=== PATIENT | female | born 1980 | race Caucasian/White ===

== ENCOUNTER 2016-09-19 21:42 | Emergency (ER) ==
[2016-09-19] MEDS ORDERED: DILAUDID IV ONE (23:32)
[2016-09-19] MEDS ORDERED: ZOFRAN IV ONE (23:32)
[2016-09-19] MEDS ORDERED: NS 1,000 ML IV ONE (23:32)
[2016-09-19 23:41] LABS: MANUAL DIFF NEEDED? NO
[2016-09-19 23:56] LABS: BASO% 0.2 % (0.0-0.8); EOS# 0.06 X1000 (0.0-0.7); EOS% 0.7 % (0.0-10.0); HEMATOCRIT 35.9 % (37.0-47.0); HEMOGLOBIN 11.3 g/dL (12.0-16.0); IMM GRAN# 0.01 X1000 (0.0-0.04); IMM GRAN% 0.1 % (0.0-0.5); LYMPH# 0.78 X1000 (1.2-3.4); LYMPH% 9.2 % (20.5-51.1); MCH 23.6 PG (27-31); MCHC 31.5 g/dL (33-37); MCV 75.1 FL (81-99); MONO# 0.53 X1000 (0.11-0.59); MONO% 6.2 % (1.7-9.3); MPV 10.3 FL (7.4-10.4); NEUT% 83.6 % (42.2-75.2); PLT 315 X1000 (130-400); RBC 4.78 XMIL (4.2-5.4)
[2016-09-20 00:04] LABS: AGAP 14; ALBUMIN 4.2 g/dL (3.5-5.0); ALKALINE PHOSPHATASE 45 U/L (32-104); AMYLASE 26 U/L (20-200); BUN 15 mg/dL (8-22); CALCIUM 8.8 mg/dL (8.8-10.2); CHLORIDE 101 mmol/L (98-107); COSMO 272; GOT 17 U/L (10-30); GPT 11 U/L (10-36); LIPASE 12 U/L (13-60); POTASSIUM 3.7 mmol/L (3.5-5.1); SODIUM 135 mmol/L (136-145); TCO2 20 mmol/L (25-35); TOTAL PROTEIN 7.1 g/dL (6.3-8.3)
[2016-09-20 00:19] LABS: URINE SOURCE CLEAN CATCH
[2016-09-20 00:23] LABS: BILIRUBIN URINE NEGATIVE (NEGATIVE); BLOOD URINE NEGATIVE (NEGATIVE); CLARITY CLEAR (CLEAR); COLOR YELLOW; GLUCOSE URINE NEGATIVE (NEGATIVE); LEUKOCYTES URINE 2+ (NEGATIVE); NITRITE URINE NEGATIVE (NEGATIVE); PH URINE 6.5; PROTEIN URINE TRACE mg/dL (NEGATIVE); UROBILINOGEN URINE 1+(1 mg/dL)
[2016-09-20 00:36] LABS: URINE CULTURE PL NEEDED? YES; URINE EPITHELIAL CELLS <10 /HPF (<10); URINE RBC <10 /HPF (<10)
--- NOTE | 2016-09-20 01:14 | PROVIDER DOCUMENTATION ---
HPI-Abdominal Pain/GI Problem - General Source: patient - History of Present Illness-ABD Nature of Presenting Problems: 35 year old WF presents with c/o nausea/vomiting greater than 50 times today, fever, max temp 101. onset all symptoms this AM, abd pain is sharp, dull, exacerbated with palpitation, movement. alleviated by nothing. Abdominal Pain Onset Location: reports: RUQ, RLQ Pain Radiation: reports: no radiation Quality of Pain: reports: dull, sharp Severity in ED: reports: mild, moderate Onset/Duration: reports: this morning Timing: reports: still present, constant, getting worse Activities at Onset: reports: none Exposure to sick contacts?: No Modifying Factors: improves with: massage, movement Associated Symptoms: reports: fatigue, fever/chills, loss of appetite, malaise. denies: constipation, diarrhea, nausea, rash, syncope, vomiting, weakness Last BM: this morning Dark Stools Present?: reports: none noticed. denies: maroon, black, tarry, bright red blood Rectal Bleeding: reports: none. denies: bleeding without stool, bright red blood on paper, blood mixed with stool, blood streaks on stool, bloody diarrhea Rectal Pain: reports: none. denies: known anal fissure(s), known hemorrhoids, fistula, abscess, r/t intercourse, r/t foreign body # of Vomiting Episodes: 50 Emesis Description: reports: clear. denies: red blood, coffee grounds, blood- streaked <Jailyn Tracy - Last Filed: 09/20/16 02:10> <Michael Ferro - Last Filed: 09/20/16 03:41> - General Chief Complaint: Nausea/Vomiting Stated Complaint: VOMITING/FEVER Time Seen by Provider: 09/19/16 22:59 Allergies/Adverse Reactions: Patient Allergies Allergy/AdvReac Type Severity Reaction Status Date / Time No Known Allergies Allergy Verified 09/19/16 22:48 Home Medications: Home Medication List Medication Instructions Recorded Confirmed Last Taken Type Chlordiazepoxide/Clidinium [Librax] 1 each PO TID PRN PRN #30 capsule 09/20/16 Unknown Rx Promethazine [Phenergan] 1 - 2 tab PO Q6H PRN PRN #18 tablet 09/20/16 Unknown Rx Review of Systems - Adult - REVIEW OF SYSTEMS - ADULT Constitutional: reports: see HPI, chills, fever, fatique Eyes: reports: no symptoms reported. denies: discharge, blurred vision, double vision, redness Ears, Nose, Mouth & Throat: reports: no symptoms reported. denies: ear discharge, ear pain, nose pain, loose teeth, throat pain, throat swelling Cardiovascular: reports: no symptoms reported. denies: chest pain, palpitations , syncope Respiratory: reports: no symptoms reported. denies: chronic cough, cough, shortness of breath, wheezing Gastrointestinal: reports: see HPI, abdominal pain, nausea, poor appetite, vomiting. denies: hematemesis, constipation, diarrhea, difficulty swallowing, frequent heartburn, rectal bleeding Genitourinary: reports: no symptoms reported. denies: dysuria, hematuria, urgency Musculoskeletal: reports: no symptoms reported. denies: bone pain, joint pain, joint swelling, neck pain Integumentary: reports: no symptoms reported. denies: hives, nail changes, skin thickening Neurological: reports: no symptoms reported. denies: ataxia, dizziness/vertigo , numbness, paresthesia, tremors Psychiatric: reports: no symptoms reported Endocrine: reports: no symptoms reported Hematologic/Lymphatic: reports: no symptoms reported Allergic/Immunologic: reports: no symptoms reported. denies: frequent infections All Other Systems: Reviewed and Negative <Jailyn Tracy - Last Filed: 09/20/16 02:10> Past History - Adult - PAST MEDICAL HISTORY-ADULT Review of Records: reports: Old Records Reviewed, Nursing Assessment Review, Medications Reviewed, Social history reviewed & non-contributory. Major Childhood Illnesses: reports: denies history Cardiovascular: reports: denies history Respiratory: reports: denies history Gastrointestinal: reports: denies history Obstetrical/Gynecological: reports: denies history Genitourinary: reports: denies history Musculoskeletal: reports: denies history Neurological: reports: denies history Endocrine/Immune: reports: denies history Other Conditions: reports: denies history - PRIOR SURGERIES/PROCEDURES Surgical/Procedure History: reports: - PRIOR HOSPITALIZATIONS Prior Hospitalizations: reports: none - IMMUNIZATION STATUS Childhood Immunizations: See Nurse Assessment Flu Vaccine: See Nurse Assessment - FAMILY HISTORY Family History: reviewed, not pertinent - SOCIAL HISTORY Smoking: cigarettes Provider spent 3-5 mins advising pt. on dangers of tobacco.: Discussed manners to quit use, and f/u contacts for add'l counseling. Substance Use: none/never Alcohol Use Frequency: never <TracyJailyn - Last Filed: 09/20/16 02:10> Physical Exam-General - PHYSICAL EXAM-ADULT Initial Vital Signs Reviewed: Yes - CONSTITUTIONAL General Appearance: appears well, alert, mild distress, moderate distress. negative: no apparent distress, severe distress, lethargic, slow to respond, obtunded, combative - EYES Eyes: pink conjunctivae. negative: conjuctival exudate, pale conjunctivae, photophobia, sclera injected, scleral icterus, subconjunctival hemorrhage - HEAD, EARS, NOSE, MOUTH & THROAT HENMT: normocephalic/atraumatic, moist mucous membranes, normal ENT inspection - NECK Neck: non-tender, full range of motion, supple, normal inspection. negative: C- spine tenderness, limited range of motion, tender lateral, tender midline - RESPIRATORY Respiratory: chest non-tender, lungs clear, normal breath sounds, no pleuratic chest pain, no respiratory distress, no accessory muscle use. negative: respiratory distress, decreased breath sounds, accessory muscle use, crackles, rales, rhonchi, stridor, wheezing - CARDIOVASCULAR Cardiovascular: normal peripheral pulses, regular rate, rhythm, no edema, no gallop, no JVD, no murmur, tachycardia - CHEST (BREASTS) Chest/Breast: deferred - GASTROINTESTINAL (ABDOMEN) Abdominal Exam: normal bowel sounds, soft, no organomegaly, no pulsatile mass, tenderness (RUQ, RLQ), McBurney's point tenderness, Olvera's sign. negative: non tender, abnormal bowel sounds, distended, guarding, rigid, rebound, hernia, mass, hepatomegaly, spleenomegaly, obturator sign, psoas, Rovsing's sign - GENITOURINARY Female Genitalia/Pelvic Exam: deferred Rectal Exam: deferred Hemoccult Exam: deferred - LYMPHATIC Lymphatic: no adenopathy - MUSCULOSKELETAL Back Exam: normal inspection, no CVA tenderness, no vertebral tenderness. negative: CVA tenderness, decreased range of motion, swelling, vertebral tenderness Extremity: normal range of motion, non-tender, normal gait, normal inspection, no pedal edema, no calf tenderness, normal capillary refill Peripheral Pulses: radial (R): 3+, radial (L): 3+, dorsalis-pedis (R): 3+, dorsalis-pedis (L): 3+ - SKIN Integumentary: normal color, normal turgor, warm/dry - NEUROLOGIC Neurologic: grossly normal, no motor/sensory deficits - PSYCHIATRIC Psych/Mental Status: normal mood/affect, normal thought content, normal thought process, oriented x 3 <Jailyn Tracy - Last Filed: 09/20/16 02:10> Progress - PLAN OF CARE/RESULTS Progress/Plan/Lab Results: Laboratory Tests 09/19/16 09/19/16 09/19/16 21:30 22:45 22:45 WBC RBC Hgb Hct MCV MCH MCHC RDW Std Deviation Plt Count MPV Immature Gran % (Auto) Neut % (Auto) Lymph % (Auto) [place] % (Auto) Eos % (Auto) Baso % (Auto) Immature Gran # (Auto) Neut # (Auto) Lymph # (Auto) [place] # (Auto) Eos # (Auto) Baso # (Auto) Sodium Potassium Chloride Carbon Dioxide Anion Gap BUN Creatinine Estimated GFR/1.73 m2 BUN/Creatinine Ratio Glucose Calculated Osmolality Calcium Total Bilirubin AST ALT Alkaline Phosphatase Total Protein Albumin Globulin Albumin/Globulin Ratio Amylase Lipase Urine Source CLEAN CATCH Urine Color YELLOW Urine Clarity CLEAR Urine pH 6.5 Ur Specific [place] 1.010 Urine Protein TRACE A Urine Ketones TRACE Urine Blood NEGATIVE Urine Nitrite NEGATIVE Urine Bilirubin NEGATIVE Urine Urobilinogen 1+(1 mg/dL) Urine Microscopic RBC <10 Urine WBC 2+ A Urine Microscopic WBC 10-20 A Ur Epithelial Cells <10 Urine Bacteria 2+ Urine Glucose NEGATIVE Urine Test NEGATIVE Influenza A (Rapid) NEGATIVE Influenza B (Rapid) NEGATIVE 09/19/16 09/19/16 22:55 22:55 WBC 8.50 RBC 4.78 Hgb 11.3 L Hct 35.9 L MCV 75.1 L MCH 23.6 L MCHC 31.5 L RDW Std Deviation 17.3 H Plt Count 315 MPV 10.3 Immature Gran % (Auto) 0.1 Neut % (Auto) 83.6 H Lymph % (Auto) 9.2 L [place] % (Auto) 6.2 Eos % (Auto) 0.7 Baso % (Auto) 0.2 Immature Gran # (Auto) 0.01 Neut # (Auto) 7.10 H Lymph # (Auto) 0.78 L [place] # (Auto) 0.53 Eos # (Auto) 0.06 Baso # (Auto) 0.02 Sodium 135 L Potassium 3.7 Chloride 101 Carbon Dioxide 20 L Anion Gap 14 BUN 15 Creatinine 0.7 Estimated GFR/1.73 m2 > 60 BUN/Creatinine Ratio 21 Glucose 112 H Calculated Osmolality 272 Calcium 8.8 Total Bilirubin 0.50 AST 17 ALT 11 Alkaline Phosphatase 45 Total Protein 7.1 Albumin 4.2 Globulin 3.0 Albumin/Globulin Ratio 1.0 Amylase 26 Lipase 12 L Urine Source Urine Color Urine Clarity Urine pH Ur Specific [place] Urine Protein Urine Ketones Urine Blood Urine Nitrite Urine Bilirubin Urine Urobilinogen Urine Microscopic RBC Urine WBC Urine Microscopic WBC Ur Epithelial Cells Urine Bacteria Urine Glucose Urine Test Influenza A (Rapid) Influenza B (Rapid) Orders Category Date Time Status ED: Orthostatic Vital Signs (E as directed Care 09/19/16 21:55 Active Saline Loc DIRECTED Care 09/19/16 23:31 Active NPO Diet 09/19/16 23:[address] ABD/PELVIS W/ IV CONT ONLY [CT] Stat Exams 09/20/16 01:12 Ordered FLAT/UPRIGHT ABD/1 VIEW CHEST [RAD] Stat Exams 09/20/16 00:01 Taken AMYLASE [CHEM] Stat Lab 09/19/16 22:55 Completed CBC WITH ELECTRONIC DIFF [HEME] Stat Lab 09/19/16 22:55 Completed COMPREHENSIVE METABOLIC PANEL [CHEM] Stat Lab 09/19/16 22:55 Completed Flu [INFLUENZA SCREEN PL] Stat Lab 09/19/16 21:30 Completed LIPASE [CHEM] Stat Lab 09/19/16 22:55 Completed TEST-URINE [PREG] Stat Lab 09/19/16 22:[address] W/POSS RFLX CULT [URINALYSIS] Stat Lab 09/19/16 22:45 Completed URINE CULTURE [RM] Routine Lab 09/20/16 00:37 Ordered 0.9% Sodium Chloride Inj [Ns] 1,000 ml Med 09/19/16 23:32 Discontinued IV 999 mls/hr Hydromorphone [Dilaudid] Med 09/19/16 23:32 Discontinued 1 mg IV NOW ONE Ondansetron [Zofran] Med 09/19/16 23:32 Discontinued 4 mg IV NOW ONE Vital Signs - 24 hr 09/19/16 09/19/16 09/19/16 21:48 22:05 23:58 Temperature 99.7 F H Pulse Rate 128 H Pulse Rate [ 124 H 112 H Sitting] Pulse Rate [ 135 H 116 H Standing] Pulse Rate [ 110 H 100 H Supine] Respiratory 19 Rate Blood Pressure 120/83 Blood Pressure 107/75 126/86 [Sitting] Blood Pressure 121/85 [Standing] Blood Pressure 123/81 109/80 [Supine] O2 Sat by Pulse 98 Oximetry - REASSESSMENT Reassessment #1 Time Reassessed: 01:13 Status: worsening (pt remains tachycardic after 1liter NS, re-examined: pt reporst pain has moved to RLQ, now with positive McBurneys sign, will CT for evalutaion of appendix.) - CHANGE OF SHIFT REPORT (ED Provider) Report Given and Care Transferred to:: Dr. Ferro Time of Transfer: 02:11 Items Pending: CT/MRI Results Tentative Impression of Patient: appendicitis, diverticulosis, cholcystitis <Jailyn Tracy - Last Filed: 09/20/16 02:10> - PLAN OF CARE/RESULTS Progress/Plan/Lab Results: Laboratory Tests 09/19/16 09/19/16 09/19/16 21:30 22:45 22:45 WBC RBC Hgb Hct MCV MCH MCHC RDW Std Deviation Plt Count MPV Immature Gran % (Auto) Neut % (Auto) Lymph % (Auto) [place] % (Auto) Eos % (Auto) Baso % (Auto) Immature Gran # (Auto) Neut # (Auto) Lymph # (Auto) [place] # (Auto) Eos # (Auto) Baso # (Auto) Sodium Potassium Chloride Carbon Dioxide Anion Gap BUN Creatinine Estimated GFR/1.73 m2 BUN/Creatinine Ratio Glucose Calculated Osmolality Calcium Total Bilirubin AST ALT Alkaline Phosphatase Total Protein Albumin Globulin Albumin/Globulin Ratio Amylase Lipase Urine Source CLEAN CATCH Urine Color YELLOW Urine Clarity CLEAR Urine pH 6.5 Ur Specific [place] 1.010 Urine Protein TRACE A Urine Ketones TRACE Urine Blood NEGATIVE Urine Nitrite NEGATIVE Urine Bilirubin NEGATIVE Urine Urobilinogen 1+(1 mg/dL) Urine Microscopic RBC <10 Urine WBC 2+ A Urine Microscopic WBC 10-20 A Ur Epithelial Cells <10 Urine Bacteria 2+ Urine Glucose NEGATIVE Urine Test NEGATIVE Influenza A (Rapid) NEGATIVE Influenza B (Rapid) NEGATIVE 09/19/16 09/19/16 22:55 22:55 WBC 8.50 RBC 4.78 Hgb 11.3 L Hct 35.9 L MCV 75.1 L MCH 23.6 L MCHC 31.5 L RDW Std Deviation 17.3 H Plt Count 315 MPV 10.3 Immature Gran % (Auto) 0.1 Neut % (Auto) 83.6 H Lymph % (Auto) 9.2 L [place] % (Auto) 6.2 Eos % (Auto) 0.7 Baso % (Auto) 0.2 Immature Gran # (Auto) 0.01 Neut # (Auto) 7.10 H Lymph # (Auto) 0.78 L [place] # (Auto) 0.53 Eos # (Auto) 0.06 Baso # (Auto) 0.02 Sodium 135 L Potassium 3.7 Chloride 101 Carbon Dioxide 20 L Anion Gap 14 BUN 15 Creatinine 0.7 Estimated GFR/1.73 m2 > 60 BUN/Creatinine Ratio 21 Glucose 112 H Calculated Osmolality 272 Calcium 8.8 Total Bilirubin 0.50 AST 17 ALT 11 Alkaline Phosphatase 45 Total Protein 7.1 Albumin 4.2 Globulin 3.0 Albumin/Globulin Ratio 1.0 Amylase 26 Lipase 12 L Urine Source Urine Color Urine Clarity Urine pH Ur Specific [place] Urine Protein Urine Ketones Urine Blood Urine Nitrite Urine Bilirubin Urine Urobilinogen Urine Microscopic RBC Urine WBC Urine Microscopic WBC Ur Epithelial Cells Urine Bacteria Urine Glucose Urine Test Influenza A (Rapid) Influenza B (Rapid) Orders Category Date Time Status ED: Orthostatic Vital Signs (E as directed Care 09/19/16 21:55 Active Saline Loc DIRECTED Care 09/19/16 23:31 Active NPO Diet 09/19/16 23:[address] ABD/PELVIS W/ IV CONT ONLY [CT] Stat Exams 09/20/16 01:12 Taken FLAT/UPRIGHT ABD/1 VIEW CHEST [RAD] Stat Exams 09/20/16 00:01 Taken US GB < RUQ (LIMITED) [US] Stat Exams 09/20/16 02:45 Taken AMYLASE [CHEM] Stat Lab 09/19/16 22:55 Completed CBC WITH ELECTRONIC DIFF [HEME] Stat Lab 09/19/16 22:55 Completed COMPREHENSIVE METABOLIC PANEL [CHEM] Stat Lab 09/19/16 22:55 Completed Flu [INFLUENZA SCREEN PL] Stat Lab 09/19/16 21:30 Completed LIPASE [CHEM] Stat Lab 09/19/16 22:55 Completed TEST-URINE [PREG] Stat Lab 09/19/16 22:[address] W/POSS RFLX CULT [URINALYSIS] Stat Lab 09/19/16 22:45 Completed URINE CULTURE [RM] Routine Lab 09/20/16 00:37 Ordered 0.9% Sodium Chloride Inj [Ns] 1,000 ml Med 09/19/16 23:32 Discontinued IV 999 mls/hr Hydromorphone [Dilaudid] Med 09/19/16 23:32 Discontinued 1 mg IV NOW ONE Ondansetron [Zofran] Med 09/19/16 23:32 Discontinued 4 mg IV NOW ONE Vital Signs - 24 hr 09/19/16 09/19/16 09/19/16 21:48 22:05 23:58 Temperature 99.7 F H Pulse Rate 128 H Pulse Rate [ 124 H 112 H Sitting] Pulse Rate [ 135 H 116 H Standing] Pulse Rate [ 110 H 100 H Supine] Respiratory 19 Rate Blood Pressure 120/83 Blood Pressure 107/75 126/86 [Sitting] Blood Pressure 121/85 [Standing] Blood Pressure 123/81 109/80 [Supine] O2 Sat by Pulse 98 Oximetry 09/20/16 02:39 Temperature 100.5 F H Pulse Rate 96 H Pulse Rate [ Sitting] Pulse Rate [ Standing] Pulse Rate [ Supine] Respiratory 18 Rate Blood Pressure 112/77 Blood Pressure [Sitting] Blood Pressure [Standing] Blood Pressure [Supine] O2 Sat by Pulse 98 Oximetry - CT/MRI 1 CT Study: Abdomen, Pelvis Impression: Normal - ULTRASOUND (By Radiology) 1 US Study: Gallbladder Impression: Normal <Michael Ferro - Last Filed: 09/20/16 03:41> Departure <Jailyn Tracy - Last Filed: 09/20/16 02:10> - Departure Time of Disposition Order: 03:39 Certified Medical Emergency: Emergent <Michael Ferro - Last Filed: 09/20/16 03:41> - Departure DIAGNOSIS: Vomiting Qualifiers: Vomiting type: unspecified Vomiting Intractability: unspecified Nausea presence : with nausea Qualified Code(s): R11.2 - Nausea with vomiting, unspecified Disposition: HOME 01 Condition: Stable Additional Instructions: ED Follow Up Instructions: You have been treated by a care provider in the Emergency Department. These instructions are being provided to you so you can have an understanding of how to care for yourself upon discharge. Upon discharge from the Emergency Department, you are responsible for making arrangements for follow-up care by a physician of your choice. Take all prescribed medications as directed. Return to the Emergency Department immediately for any new or worsening symptoms. You may call the Physician Referral phone number at [phone] to obtain a list of Physicians who are taking new patients. Prescriptions: Chlordiazepoxide/Clidinium [Librax] 1 each PO TID PRN PRN #30 capsule PRN Reason: belly pain Promethazine [Phenergan] 1 - 2 tab PO Q6H PRN PRN #18 tablet PRN Reason: Vomiting Referrals: None,PCP [Primary Care Provider] - Attestation - Physician/ JOSE Attestation Patient care was provided by Advanced Practice Provider:: Yes Advanced Practice Provider:: Jailyn Tracy Advanced Practice Provider documentation review:: The Mid-level provider documentation, treatment plan and medical decision making was reviewed by the physician who agrees with all treatment and medical decision making by the P. <Jailyn Tracy - Last Filed: 09/20/16 02:10> Physician Attestation
[2016-09-20 03:41] VITALS: BP 104/71
[2016-09-20] MEDS ORDERED: PHENERGAN ONE (03:52)
[2016-09-20] MEDS ORDERED: LIBRAX ONE (03:52)
[2016-09-20] MEDS ORDERED: PHENERGAN PO ONE (04:07)
[2016-09-20] MEDS ORDERED: LIBRAX PO ONE (04:07)
--- NOTE | 2016-09-20 08:31 | Diag Imaging Result Document ---
PROCEDURE NAME: CT ABD/PELVIS W/ IV CONT ONLY - 09/20/2016 CT ABDOMEN AND PELVIS WITH INTRAVENOUS CONTRAST, 09/20/2016: A CT dose reduction protocol was used. COMPARISON: None. FINDINGS: The lung bases are clear and the heart size is normal. There is a small hiatal hernia. There is a cyst in the spleen inferiorly measuring about 1 cm. The liver, gallbladder, pancreas, adrenals, and kidneys are normal. There is a small right ovarian cyst measuring about 1.8 cm. Urinary bladder, uterus, and rectum are normal. Bony structures are intact. IMPRESSION: Small cysts in the spleen and right ovary. Small hiatal hernia. No acute disease. MTDD
--- NOTE | 2016-09-20 08:33 | Diag Imaging Result Document ---
PROCEDURE NAME: US GB < RUQ (LIMITED) - 09/20/2016 RIGHT UPPER QUADRANT ULTRASOUND, 09/20/2016: COMPARISON: None. FINDINGS: The liver, gallbladder, pancreas and right kidney are normal. The common bile duct measures 6.5 mm. Aorta, IVC, and main portal vein are patent. Sonographic Olvera sign is negative. IMPRESSION: Negative exam.
--- NOTE | 2016-09-20 08:40 | Diag Imaging Result Document ---
PROCEDURE NAME: FLAT/UPRIGHT ABD/1 VIEW CHEST - 09/20/2016 FRONTAL CHEST X-RAY AND 2 VIEWS OF THE ABDOMEN: COMPARISON: 12/14/2011. FINDINGS: There is a stable calcified granuloma in the right lung base. Otherwise, the lungs are clear and the heart size is normal. There is a nonobstructive bowel gas pattern. No free air or abnormal calcifications. IMPRESSION: No acute disease.
== END 2016-09-20 04:09 | disposition home or self-care (01) ==
LOC: P.ED 21:42
DX: R11.2 Nausea with vomiting, unspecified (principal); D73.4 Cyst of spleen; N83.201 Unspecified ovarian cyst, right side; K44.9 Diaphragmatic hernia without obstruction or gangrene; R50.9 Fever, unspecified; R10.11 Right upper quadrant pain; R10.31 Right lower quadrant pain; R53.83 Other fatigue; R53.81 Other malaise; R10.811 Right upper quadrant abdominal tenderness; R10.813 Right lower quadrant abdominal tenderness; R00.0 Tachycardia, unspecified; F17.210 Nicotine dependence, cigarettes, uncomplicated; Z71.6 Tobacco abuse counseling
CPT/HCPCS: 74022; 74177; 76705; 80053; 81001; 81025; 82150; 83690; 85025; 87088; 87804; J1170; J2405; J7030; Q9967